=== PATIENT | male | born 1995 | race Caucasian/White ===

== ENCOUNTER → 2017-05-10 | Outpatient (CLI) | payer OTHER ==
[~2017-05-10] MED LIST: BUSPAR 5MG TABLE5 MG PO; IBUPROFEN800 MG PO; LORTAB 5-325 M1 EACH PO
== END ==
LOC: HEART CORB 14:00
DX: R55 Syncope and collapse (principal); I35.9 Nonrheumatic aortic valve disorder, unspecified
CPT/HCPCS: 93306

== ENCOUNTER 2021-04-22 01:46 | Emergency (ER) | payer OTHER ==
[~2021-04-22 01:46] MED LIST changes: +KEFLEX CAP 500500 MG PO
[2021-04-22 02:30] LABS: HEMOGLOBIN 16.1 gm/dl (14.0-17.5); RED BLOOD COUNT 5.1 M/UL (4.20-5.50); WHITE BLOOD COUNT 7.6 K/UL (4.5-11.0)
[2021-04-22 02:48] LABS: BUN/CREATININE RATIO 20 (0-10)
[2021-04-22] MEDS ORDERED: MIRALAX 119 GR119 GM GT (06:16)
== END 2021-04-22 04:40 | disposition home or self-care (01) ==
LOC: ER1 01:46
PROVIDERS: Physician Assistant
DX: R10.84 Generalized abdominal pain (principal); F17.200 Nicotine dependence, unspecified, uncomplicated; Z88.8 Allergy status to other drugs, medicaments and biological substances
CPT/HCPCS: 80053; 81001; 83690; 85025; 99284; 99285; Q9967

== ENCOUNTER 2021-12-05 01:25 | Emergency (ER) | payer OTHER ==
[~2021-12-05 01:25] MED LIST changes: +MIRALAX 119 GR119 GM GT
== END 2021-12-05 04:05 | disposition left against medical advice (07) ==
LOC: ER1 01:25
DX: Z53.21 Procedure and treatment not carried out due to patient leaving prior to being seen by health care provider (principal)